=== PATIENT | male | born 2000 | race Caucasian/White ===

== ENCOUNTER 2024-06-03 04:12 | Emergency (ER) | payer OTHER, MEDICAID ==
[~2024-06-03] VITALS: Ht 177.8 cm; Wt 105.0 kg
[2024-06-03 04:29] VITALS: BP 141/92; PULSE 100; RESP 18; TEMP 98.1; O2SAT 100
[2024-06-03] MEDS: IBUPROFEN 600MG TABLET PO NR (07:07)
[2024-06-03] MEDS ORDERED: IBUP-2029 MT (07:50)
== END 2024-06-03 08:33 | disposition home or self-care (01) ==
LOC: ER 04:37
DX: S06.0X0A Concussion without loss of consciousness, initial encounter (principal); M54.2 Cervicalgia; F10.90 Alcohol use, unspecified, uncomplicated; F12.90 Cannabis use, unspecified, uncomplicated; I10 Essential (primary) hypertension; V43.62XA Car passenger injured in collision with other type car in traffic accident, initial encounter; Y93.89 Activity, other specified; Y92.410 Unspecified street and highway as the place of occurrence of the external cause; Y99.8 Other external cause status; Y90.9 Presence of alcohol in blood, level not specified
CPT/HCPCS: 71045; 99284